=== PATIENT | female | born 1955 | race Caucasian/White ===

== ENCOUNTER 2019-05-09 10:23 | Emergency (ER) | payer OTHER ==
[~2019-05-09] VITALS: Ht 152.4 cm; Wt 51.0 kg
[2019-05-09 10:25] VITALS: BP 137/81; PULSE 85; RESP 17; Ht 152.4 cm; Wt 51.0 kg
== END 2019-05-09 12:57 | disposition home or self-care (01) ==
LOC: FTE 10:23
DX: S16.1XXA Strain of muscle, fascia and tendon at neck level, initial encounter (principal); R51 Headache; V49.50XA Passenger injured in collision with unspecified motor vehicles in traffic accident, initial encounter
CPT/HCPCS: 70450; 72125